=== PATIENT | female | born 1940 | race Caucasian/White ===

== ENCOUNTER 2018-08-20 14:36 | Observation (INO) ==
[2018-08-20 16:26] LABS: Basophils # 0.1 10*3/uL (0.0-0.2); Basophils % 0.8 % (0.0-0.8); Eosinophils # 0.1 10*3/uL (0.0-0.87); Eosinophils % 1.7 % (0.00-10.9); Hematocrit 31.7 VOL% (35.7-47.0); Hemoglobin 9.7 GM/DL (12.0-16.0); Immature Granulocytes % 0.4 %; Immature Granulocytes Absolute 0.03 #; Lymphocytes # 1.3 10*3/uL (1.4-4.0); Lymphocytes % 17.8 % (21.3-54.2); Mean Corpuscular HGB Conc 30.6 GM/DL (32-36); Mean Corpuscular Hemoglobin 32 PG (27-34); Mean Corpuscular Volume 103.3 FL (87-102); Mean Platelet Volume 10.7 FL (9.6-12.0); Monocytes # 0.4 10*3/uL (0.11-0.8); Neutrophils # 5.3 10*3/uL (1.4-7.4); Neutrophils % 74.3 % (38.7-73.9); Platelet Count 233 T/CUMM (130-400); Red Blood Count 3.07 MC/CUMM (3.8-5.5); White Blood Count 7.1 T/CUMM (4-12)
[2018-08-20 16:50] LABS: Albumin 3.8 G/DL (3.4-5.0); Bilirubin,Total 1.2 MG/DL (0.2-1.0); Calcium 8.7 MG/DL (8.5-10.1); Osmolality,Calculated 272.8 MOS/KG (273-304); Potassium 4.2 MMOL/L (3.5-5.1); Total Protein 7.6 G/DL (6.4-8.3)
[2018-08-20 17:01] LABS: INR 1.6; Partial Thromboplastin Time 37.1 SECS (0-40)
[2018-08-20] MEDS ORDERED: SODIUM CHLORIDE 0.9% 500 ML IV STA (17:31)
[2018-08-20 18:05] LABS: Apearance,Urine CLEAR (Clear); Bacteria,Urine Occasional /HPF (Few); Bilirubin,Urine Negative (Negative); Blood, Urine Moderate mg/dL (Negative); Glucose,Urine (UA) Negative (Negative); Ketones,Urine Negative (Negative); Nitrite,Urine Negative (Negative); Protein,Urine Negative; RBC,Urine 5 /HPF (0-4); Urine Color Straw (Yellow); Urine Specific Gravity 1.005 (1.001-1.035); Urine Urobilinogen < 2.0 EU/DL (0.2-1.0); WBC,Urine 3 /HPF (0-6)
[2018-08-20] MEDS ORDERED: WARFARIN 3 MG TABLET PO SCH (19:08)
[2018-08-20] MEDS ORDERED: MORPHINE 4 MG/1 ML VIAL IV PRN (19:08)
[2018-08-20] MEDS ORDERED: ONDANSETRON 4 MG/2 ML VIAL IV PRN (19:08)
[2018-08-20] MEDS: METOPROLOL TARTRATE 50 MG TABLET PO SCH (20:48)
[2018-08-20] MEDS: AMITRIPTYLINE 25 MG TABLET PO SCH (20:48)
[2018-08-20] MEDS: DOCUSATE SODIUM 100 MG CAPSULE PO SCH (20:48)
[2018-08-20] MEDS: ALPRAZolam 0.5 MG TABLET PO SCH (20:50)
[2018-08-21] MEDS: ASPIRIN EC 81 MG TABLET PO SCH (09:43)
[2018-08-21] MEDS: DOCUSATE SODIUM 100 MG CAPSULE PO SCH ×2 (09:43→21:13)
[2018-08-21] MEDS: METOPROLOL TARTRATE 50 MG TABLET PO SCH ×2 (09:43→21:13)
[2018-08-21] MEDS: PANTOPRAZOLE 40 MG TABLET PO SCH (09:43)
[2018-08-21 14:29] LABS: INR 2.5
[2018-08-21 14:30] LABS: PT Patient Result 25.3 SECS
[2018-08-21] MEDS: FERROUS SULFATE 325 MG TABLET PO SCH (16:29)
[2018-08-21] MEDS ORDERED: WARFARIN 3 MG TABLET PO SCH (18:00)
[2018-08-21] MEDS: ALPRAZolam 0.5 MG TABLET PO SCH (21:11)
[2018-08-21] MEDS: AMITRIPTYLINE 25 MG TABLET PO SCH (21:12)
[2018-08-21] MEDS: ACETAMINOPHEN 325 MG TABLET PO PRN (21:13)
[2018-08-21] MEDS ORDERED: rOPINIRole 1 MG TABLET PO SCH (23:45)
[2018-08-22 05:50] LABS: Basophils # 0.1 10*3/uL (0.0-0.2); Basophils % 0.9 % (0.0-0.8); Eosinophils # 0.2 10*3/uL (0.0-0.87); Eosinophils % 3.6 % (0.00-10.9); Hematocrit 27.9 VOL% (35.7-47.0); Hemoglobin 8.7 GM/DL (12.0-16.0); Immature Granulocytes % 0.5 %; Immature Granulocytes Absolute 0.03 #; Lymphocytes # 0.9 10*3/uL (1.4-4.0); Lymphocytes % 15.7 % (21.3-54.2); Mean Corpuscular HGB Conc 31.2 GM/DL (32-36); Mean Corpuscular Hemoglobin 32 PG (27-34); Mean Corpuscular Volume 102.6 FL (87-102); Mean Platelet Volume 10.4 FL (9.6-12.0); Monocytes # 0.4 10*3/uL (0.11-0.8); Monocytes % 7.5 % (1.7-12.7); Neutrophils % 71.8 % (38.7-73.9); Platelet Count 182 T/CUMM (130-400); Red Blood Count 2.72 MC/CUMM (3.8-5.5); Red Cell Distribution Width 12.8 % (9.3-17.3); White Blood Count 5.6 T/CUMM (4-12)
[2018-08-22 06:03] LABS: Calcium 8.4 MG/DL (8.5-10.1); INR 4.2; Osmolality,Calculated 282.8 MOS/KG (273-304); Potassium 4.1 MMOL/L (3.5-5.1)
[2018-08-22 06:05] LABS: PT Patient Result 41.6 SECS
[2018-08-22 08:05] VITALS: BP 109/57
[2018-08-22] MEDS: ACETAMINOPHEN 325 MG TABLET PO PRN (08:39)
[2018-08-22] MEDS: PANTOPRAZOLE 40 MG TABLET PO SCH (08:39)
[2018-08-22] MEDS: DOCUSATE SODIUM 100 MG CAPSULE PO SCH (08:39)
[2018-08-22] MEDS: FERROUS SULFATE 325 MG TABLET PO SCH (08:39)
[2018-08-22] MEDS: METOPROLOL TARTRATE 50 MG TABLET PO SCH (08:39)
[2018-08-22] MEDS: ASPIRIN EC 81 MG TABLET PO SCH (08:39)
[2018-08-22] MEDS ORDERED: MAGNESIUM GLUCONATE 500 MG TABLET PO SCH (09:00)
[2018-08-22] MEDS ORDERED: FUROSEMIDE 20 MG TABLET PO SCH (09:00)
== END 2018-08-22 13:13 | disposition home or self-care (01) ==
LOC: N.ED 14:36 → N.EDINP 14:36 → N.TELEN 19:01
PROVIDERS: ADMIT Family Medicine; ATTEND Family Medicine

== ENCOUNTER 2019-04-20 12:44 | Inpatient (IN) ==
[2019-04-20] MEDS ORDERED: HYDROmorphone 2 MG/1 ML VIAL IV STA (13:16)
[2019-04-20] MEDS ORDERED: ONDANSETRON 4 MG/2 ML VIAL ONE (13:17)
[2019-04-20] MEDS ORDERED: HYDROmorphone 2 MG/1 ML VIAL ONE (13:17)
[2019-04-20] MEDS ORDERED: ONDANSETRON 4 MG/2 ML VIAL IV STA (13:18)
[2019-04-20 13:58] LABS: Basophils # 0.1 10*3/uL (0.0-0.2); Basophils % 0.7 % (0.0-0.8); Eosinophils # 0.3 10*3/uL (0.0-0.87); Eosinophils % 3.5 % (0.00-10.9); Hematocrit 29.9 VOL% (35.7-47.0); Hemoglobin 8.9 GM/DL (12.0-16.0); Immature Granulocytes % 0.7 %; Immature Granulocytes Absolute 0.05 #; Lymphocytes # 0.9 10*3/uL (1.4-4.0); Lymphocytes % 12.8 % (21.3-54.2); Mean Corpuscular HGB Conc 29.8 GM/DL (32-36); Mean Corpuscular Volume 102.7 FL (87-102); Mean Platelet Volume 9.7 FL (9.6-12.0); Monocytes % 5.3 % (1.7-12.7); Platelet Count 218 T/CUMM (130-400); Red Blood Count 2.91 MC/CUMM (3.8-5.5); Red Cell Distribution Width 13.6 % (9.3-17.3); White Blood Count 7.4 T/CUMM (4-12)
[2019-04-20] MEDS ORDERED: KETOROLAC 30 MG/1 ML VIAL ONE (14:05)
[2019-04-20 14:07] LABS: INR 3.1; Partial Thromboplastin Time 38.5 SECS (0-40)
[2019-04-20] MEDS ORDERED: KETOROLAC 30 MG/1 ML VIAL IV STA (14:09)
[2019-04-20 14:17] LABS: Calcium 8.5 MG/DL (8.5-10.1)
[2019-04-20] MEDS ORDERED: GLUCAGON 1 MG VIAL IM PRN (14:34)
[2019-04-20] MEDS ORDERED: DEXTROSE 50% 25 GM/50 ML VIAL IV PRN (14:34)
[2019-04-20] MEDS ORDERED: MAGNESIUM HYDROXIDE SUSP 30 ML UDCUP PO PRN (14:34)
[2019-04-20] MEDS ORDERED: CARBOXYMETHYLCELLULOSE 1% OPH SOLN BOTH EYES PRN (14:39)
[2019-04-20] MEDS ORDERED: FUROSEMIDE 20 MG TABLET PO PRN (14:39)
[2019-04-20 15:10] LABS: Alanine Aminotransferase 34 U/L (13-56); Albumin 3.5 G/DL (3.4-5.0); Alkaline Phosphatase 129 U/L (45-117); Aspartate Amino Transferase 38 U/L (0-37); Bilirubin,Total < 0.39 MG/DL (0.2-1.0); Blood Urea Nitrogen 30 MG/DL (7-18); Calcium 8.4 MG/DL (8.5-10.1); Glucose 93 MG/DL (74-106); Total Protein 6.9 G/DL (6.4-8.3)
[2019-04-20] MEDS: SODIUM CHLORIDE 0.9% 1,000 ML IV SCH (17:05)
[2019-04-20] MEDS: rOPINIRole 1 MG TABLET PO SCH ×2 (17:10→20:56)
[2019-04-20] MEDS: INSULIN LISPRO 100 UNIT/ML SUBCUT SCH ×2 (17:12→20:56)
[2019-04-20] MEDS: HYDROmorphone 2 MG/1 ML VIAL IV PRN ×2 (19:46→23:39)
[2019-04-20] MEDS: METOPROLOL TARTRATE 50 MG TABLET PO SCH (20:56)
[2019-04-21] MEDS: SODIUM CHLORIDE 0.9% 1,000 ML IV SCH ×3 (03:44→20:35)
[2019-04-21] MEDS: HYDROmorphone 2 MG/1 ML VIAL IV PRN ×4 (03:45→19:37)
[2019-04-21 05:34] LABS: Calcium 7.8 MG/DL (8.5-10.1)
[2019-04-21 05:37] LABS: PT Patient Result 32.8 SECS
[2019-04-21] MEDS ORDERED: SODIUM CHLORIDE 0.9% 1,000 ML IV PRN (07:01)
[2019-04-21] MEDS: INSULIN LISPRO 100 UNIT/ML SUBCUT SCH ×4 (07:37→21:51)
[2019-04-21] MEDS: rOPINIRole 1 MG TABLET PO SCH ×3 (10:08→22:15)
[2019-04-21] MEDS: FERROUS SULFATE 325 MG TABLET PO SCH (10:08)
[2019-04-21] MEDS: METOPROLOL TARTRATE 50 MG TABLET PO SCH ×2 (10:08→22:16)
[2019-04-21 12:15] LABS: INR 2.3
[2019-04-21 12:19] LABS: PT Patient Result 25.1 SECS
[2019-04-21 14:14] LABS: INR 1.6; PT Patient Result 17.5 SECS
[2019-04-21] MEDS ORDERED: ceFAZolin 1,000 MG VIAL ONE (15:49)
[2019-04-21] MEDS ORDERED: ONDANSETRON 4 MG/2 ML VIAL ONE (17:39)
[2019-04-21] MEDS ORDERED: ETOMIDATE 40 MG/20 ML VIAL IV ONE (17:39)
[2019-04-21] MEDS ORDERED: DESFLURANE 1 UNIT/15 MINUTE INH ONE (17:39)
[2019-04-21] MEDS ORDERED: fentaNYL 100 MCG/2 ML VIAL ONE (17:39)
[2019-04-21] MEDS ORDERED: SODIUM CHLORIDE 0.9% 1,000 ML IV ONE (17:40)
[2019-04-21] MEDS ORDERED: ROCURONIUM 100 MG/10 ML VIAL IV ONE (17:40)
[2019-04-21] MEDS ORDERED: SUCCINYLCHOLINE 200 MG/10 ML VIAL ONE (17:40)
[2019-04-21] MEDS ORDERED: PHENYLEPHRINE 1 MG/10 ML SYRINGE IV ONE (17:40)
[2019-04-21] MEDS: ceFAZolin 1,000 MG in SYRINGE 1 EACH IV SCH ×2 (19:02→22:25)
[2019-04-22 05:22] LABS: Calcium 7.7 MG/DL (8.5-10.1); Osmolality,Calculated 296.6 MOS/KG (273-304)
[2019-04-22 05:28] LABS: INR 1.8; PT Patient Result 19.8 SECS
[2019-04-22 06:13] LABS: Basophils # 0.1 10*3/uL (0.0-0.2); Basophils % 0.4 % (0.0-0.8); Eosinophils # 0.3 10*3/uL (0.0-0.87); Eosinophils % 2.3 % (0.00-10.9); Hematocrit 25.2 VOL% (35.7-47.0); Immature Granulocytes % 0.8 %; Immature Granulocytes Absolute 0.11 #; Lymphocytes # 0.6 10*3/uL (1.4-4.0); Lymphocytes % 4.4 % (21.3-54.2); Mean Corpuscular HGB Conc 31.7 GM/DL (32-36); Mean Corpuscular Volume 96.9 FL (87-102); Mean Platelet Volume 10.7 FL (9.6-12.0); Monocytes % 4.1 % (1.7-12.7); NRBC # 0.02 10*3/uL; Platelet Count 102 T/CUMM (130-400); Red Cell Distribution Width 16.5 % (9.3-17.3); White Blood Count 13.6 T/CUMM (4-12)
[2019-04-22 06:36] LABS: Eosinophils 1 % (0-10); Lymphocytes 4 % (20-55); Segmented Neutrophils 93 % (50-85); Total Cells Counted 100
[2019-04-22 06:37] LABS: Hypochromasia 1+; Platelet Estimate Adequate
[2019-04-22] MEDS: SODIUM CHLORIDE 0.9% 1,000 ML IV SCH ×2 (06:47→17:25)
[2019-04-22] MEDS: ceFAZolin 1,000 MG in SYRINGE 1 EACH IV SCH ×3 (06:47→23:37)
[2019-04-22] MEDS ORDERED: SODIUM CHLORIDE 0.9% 1,000 ML IV PRN (07:15)
[2019-04-22] MEDS: INSULIN LISPRO 100 UNIT/ML SUBCUT SCH ×4 (07:57→22:03)
[2019-04-22] MEDS ORDERED: MAGNESIUM SULF RIDER 4 GM in PREMIX 1 EACH IV PRN (08:05)
[2019-04-22] MEDS: METOPROLOL TARTRATE 50 MG TABLET PO SCH (08:58)
[2019-04-22] MEDS: rOPINIRole 1 MG TABLET PO SCH ×3 (08:58→22:02)
[2019-04-22] MEDS: FERROUS SULFATE 325 MG TABLET PO SCH (08:58)
[2019-04-22] MEDS: ENOXAPARIN 40 MG/0.4 ML SYRINGE SUBCUT SCH ×2 (12:24→22:03)
[2019-04-22] MEDS: ACETAMINOPHEN 325 MG TABLET PO PRN (15:29)
[2019-04-22] MEDS: MAGNESIUM SULF RIDER 2 GM in PREMIX 1 EACH IV PRN (16:55)
[2019-04-22] MEDS: WARFARIN 7.5 MG TABLET PO SCH (17:26)
[2019-04-22 18:29] LABS: Hematocrit 28.9 VOL% (35.7-47.0); Hemoglobin 9.5 GM/DL (12.0-16.0)
[2019-04-22] MEDS: METOPROLOL TARTRATE 25 MG TABLET PO SCH (22:03)
[2019-04-23] MEDS ORDERED: ALPRAZolam 0.5 MG TABLET PO ONE (00:16)
[2019-04-23] MEDS: SODIUM CHLORIDE 0.9% 1,000 ML IV SCH ×3 (01:36→13:48)
[2019-04-23 05:35] LABS: Calcium 8.1 MG/DL (8.5-10.1)
[2019-04-23 06:19] LABS: PT Patient Result 21.2 SECS
[2019-04-23 06:41] LABS: Basophils % 0.4 % (0.0-0.8); Eosinophils # 0.8 10*3/uL (0.0-0.87); Hematocrit 25.6 VOL% (35.7-47.0); Hemoglobin 8.5 GM/DL (12.0-16.0); Immature Granulocytes % 0.5 %; Immature Granulocytes Absolute 0.05 #; Lymphocytes # 0.7 10*3/uL (1.4-4.0); Lymphocytes % 7.4 % (21.3-54.2); Mean Corpuscular HGB Conc 33.2 GM/DL (32-36); Mean Corpuscular Volume 95.2 FL (87-102); Monocytes % 4.4 % (1.7-12.7); Neutrophils % 79.3 % (38.7-73.9); Red Blood Count 2.69 MC/CUMM (3.8-5.5); Red Cell Distribution Width 16.4 % (9.3-17.3); White Blood Count 9.9 T/CUMM (4-12)
[2019-04-23 06:48] LABS: Platelet Count 80 T/CUMM (130-400)
[2019-04-23 07:03] LABS: Anisocytosis Slight; Platelet Estimate Decreased
[2019-04-23] MEDS: ceFAZolin 1,000 MG in SYRINGE 1 EACH IV SCH ×3 (07:16→23:10)
[2019-04-23] MEDS: INSULIN LISPRO 100 UNIT/ML SUBCUT SCH ×4 (07:26→21:05)
[2019-04-23] MEDS ORDERED: SODIUM CHLORIDE 0.9% 1,000 ML IV PRN (07:32)
[2019-04-23] MEDS: FERROUS SULFATE 325 MG TABLET PO SCH (10:09)
[2019-04-23] MEDS: METOPROLOL TARTRATE 25 MG TABLET PO SCH ×2 (10:10→20:25)
[2019-04-23] MEDS: rOPINIRole 1 MG TABLET PO SCH ×3 (10:10→20:25)
[2019-04-23] MEDS: WARFARIN 7.5 MG TABLET PO SCH (18:00)
[2019-04-24 05:58] LABS: INR 2.3
[2019-04-24 06:08] LABS: PT Patient Result 24.9 SECS
[2019-04-24] MEDS: ceFAZolin 1,000 MG in SYRINGE 1 EACH IV SCH ×3 (07:05→22:02)
[2019-04-24] MEDS: SODIUM CHLORIDE 0.9% 1,000 ML IV SCH ×2 (07:10→12:10)
[2019-04-24] MEDS: INSULIN LISPRO 100 UNIT/ML SUBCUT SCH ×4 (07:53→21:02)
[2019-04-24] MEDS: FERROUS SULFATE 325 MG TABLET PO SCH (09:28)
[2019-04-24] MEDS: METOPROLOL TARTRATE 25 MG TABLET PO SCH ×2 (09:28→21:04)
[2019-04-24] MEDS: rOPINIRole 1 MG TABLET PO SCH ×3 (09:28→21:03)
[2019-04-24] MEDS: WARFARIN 7.5 MG TABLET PO SCH (17:48)
[2019-04-25] MEDS: SODIUM CHLORIDE 0.9% 1,000 ML IV SCH (06:19)
[2019-04-25] MEDS: ceFAZolin 1,000 MG in SYRINGE 1 EACH IV SCH ×3 (06:19→23:29)
[2019-04-25 06:56] LABS: Basophils % 0.5 % (0.0-0.8); Eosinophils # 0.7 10*3/uL (0.0-0.87); Eosinophils % 9.6 % (0.00-10.9); Hematocrit 33.3 VOL% (35.7-47.0); Hemoglobin 10.8 GM/DL (12.0-16.0); Immature Granulocytes % 0.4 %; Immature Granulocytes Absolute 0.03 #; Lymphocytes # 0.7 10*3/uL (1.4-4.0); Mean Corpuscular HGB Conc 32.4 GM/DL (32-36); Mean Platelet Volume 11.1 FL (9.6-12.0); Neutrophils % 72.5 % (38.7-73.9); Platelet Count 90 T/CUMM (130-400); Red Blood Count 3.47 MC/CUMM (3.8-5.5); Red Cell Distribution Width 16.4 % (9.3-17.3); White Blood Count 7.3 T/CUMM (4-12)
[2019-04-25 07:03] LABS: INR 3.3
[2019-04-25 07:04] LABS: PT Patient Result 35.8 SECS
[2019-04-25 07:19] LABS: Osmolality,Calculated 283.3 MOS/KG (273-304)
[2019-04-25] MEDS: INSULIN LISPRO 100 UNIT/ML SUBCUT SCH ×4 (07:47→21:13)
[2019-04-25 08:08] LABS: Anisocytosis 1+; Burr Cells Slight; Macrocytosis Slight; Microcytosis Slight; Ovalocytes Slight; Platelet Estimate Adequate; Polychromasia Slight
[2019-04-25] MEDS: rOPINIRole 1 MG TABLET PO SCH ×3 (08:24→21:13)
[2019-04-25] MEDS: METOPROLOL TARTRATE 25 MG TABLET PO SCH ×2 (08:24→21:13)
[2019-04-25] MEDS: FERROUS SULFATE 325 MG TABLET PO SCH (08:25)
[2019-04-25] MEDS: HYDROmorphone 2 MG/1 ML VIAL IV PRN ×2 (12:17→19:49)
[2019-04-25] MEDS: WARFARIN 7.5 MG TABLET PO SCH (18:02)
[2019-04-26] MEDS: SODIUM CHLORIDE 0.9% 1,000 ML IV SCH ×2 (02:03→21:40)
[2019-04-26] MEDS: HYDROmorphone 2 MG/1 ML VIAL IV PRN (03:56)
[2019-04-26] MEDS: ceFAZolin 1,000 MG in SYRINGE 1 EACH IV SCH ×3 (06:18→23:40)
[2019-04-26 06:28] LABS: INR 4.3
[2019-04-26] MEDS: INSULIN LISPRO 100 UNIT/ML SUBCUT SCH ×4 (08:30→21:33)
[2019-04-26] MEDS: rOPINIRole 1 MG TABLET PO SCH ×4 (10:00→21:34)
[2019-04-26] MEDS: ALPRAZolam 0.25 MG TABLET PO PRN (10:07)
[2019-04-26] MEDS: FERROUS SULFATE 325 MG TABLET PO SCH (10:07)
[2019-04-26] MEDS: METOPROLOL TARTRATE 25 MG TABLET PO SCH ×2 (10:07→21:34)
[2019-04-26] MEDS: WARFARIN 7.5 MG TABLET PO SCH (17:15)
[2019-04-26] MEDS: DESITIN 4OZ/NYSTATIN 15 GRAM MIXTURE PASTE TOP SCH (21:40)
[2019-04-27] MEDS: ACETAMINOPHEN 325 MG TABLET PO PRN ×3 (00:07→14:38)
[2019-04-27] MEDS: ALPRAZolam 0.25 MG TABLET PO PRN ×2 (00:07→22:25)
[2019-04-27 05:44] LABS: Basophils % 0.6 % (0.0-0.8); Eosinophils # 0.5 10*3/uL (0.0-0.87); Eosinophils % 7.6 % (0.00-10.9); Hematocrit 31.5 VOL% (35.7-47.0); Immature Granulocytes % 0.4 %; Immature Granulocytes Absolute 0.03 #; Lymphocytes # 0.6 10*3/uL (1.4-4.0); Lymphocytes % 8.1 % (21.3-54.2); Mean Corpuscular HGB Conc 31.7 GM/DL (32-36); Mean Corpuscular Volume 98.4 FL (87-102); Mean Platelet Volume 10.6 FL (9.6-12.0); Monocytes % 8.5 % (1.7-12.7); Neutrophils % 74.8 % (38.7-73.9); Platelet Count 130 T/CUMM (130-400); Red Cell Distribution Width 15.6 % (9.3-17.3); White Blood Count 7.1 T/CUMM (4-12)
[2019-04-27 05:51] LABS: INR 3.1; PT Patient Result 33.6 SECS
[2019-04-27] MEDS: ceFAZolin 1,000 MG in SYRINGE 1 EACH IV SCH ×3 (06:25→23:06)
[2019-04-27 06:32] LABS: Alanine Aminotransferase < 9 U/L (13-56); Albumin 2.2 G/DL (3.4-5.0); Alkaline Phosphatase 95 U/L (45-117); Aspartate Amino Transferase 26 U/L (0-37); Blood Urea Nitrogen 15 MG/DL (7-18); Calcium 7.9 MG/DL (8.5-10.1); Glucose 104 MG/DL (74-106); Total Protein 5.1 G/DL (6.4-8.3)
[2019-04-27] MEDS: INSULIN LISPRO 100 UNIT/ML SUBCUT SCH ×4 (07:58→21:06)
[2019-04-27] MEDS: FERROUS SULFATE 325 MG TABLET PO SCH (09:12)
[2019-04-27] MEDS: METOPROLOL TARTRATE 25 MG TABLET PO SCH ×2 (09:13→21:06)
[2019-04-27] MEDS: rOPINIRole 1 MG TABLET PO SCH ×3 (09:13→21:06)
[2019-04-27] MEDS: MAGNESIUM SULF RIDER 2 GM in PREMIX 1 EACH IV PRN (09:15)
[2019-04-27] MEDS: DESITIN 4OZ/NYSTATIN 15 GRAM MIXTURE PASTE TOP SCH ×2 (09:20→21:06)
[2019-04-27] MEDS ORDERED: ERGOCALCIFEROL 50,000 UNIT CAPSULE PO ONE (10:16)
[2019-04-27] MEDS ORDERED: traMADol 50 MG TABLET PO PRN (10:38)
[2019-04-27] MEDS ORDERED: WARFARIN 5 MG TABLET PO SCH ×2 (18:00)
[2019-04-27] MEDS: SODIUM CHLORIDE 0.9% 1,000 ML IV SCH (19:45)
[2019-04-27] MEDS ORDERED: NITROGLYCERIN SL 0.4 MG TABLET SL ONE (22:21)
[2019-04-27] MEDS ORDERED: SIMETHICONE CHEW 80 MG TABLET PO PRN (22:33)
[2019-04-27] MEDS ORDERED: ALUM/MAG/SIMETH/LIDO VISC 1:1 30 ML BOTTLE PO ONE (22:33)
[2019-04-27] MEDS ORDERED: ALUMINUM/MAGNES/SIMETH MAX STR 30 ML UDCUP PO PRN (22:35)
[2019-04-27] MEDS ORDERED: NITROGLYCERIN SL 0.4 MG TABLET SL PRN (22:36)
[2019-04-28 05:00] LABS: Basophils % 0.5 % (0.0-0.8); Eosinophils # 0.5 10*3/uL (0.0-0.87); Eosinophils % 6.7 % (0.00-10.9); Hematocrit 29.7 VOL% (35.7-47.0); Hemoglobin 9.6 GM/DL (12.0-16.0); Immature Granulocytes % 0.8 %; Immature Granulocytes Absolute 0.06 #; Lymphocytes # 0.7 10*3/uL (1.4-4.0); Lymphocytes % 9.6 % (21.3-54.2); Mean Corpuscular HGB Conc 32.3 GM/DL (32-36); Mean Corpuscular Volume 97.7 FL (87-102); Mean Platelet Volume 10.9 FL (9.6-12.0); Monocytes % 7.1 % (1.7-12.7); Neutrophils % 75.3 % (38.7-73.9); Platelet Count 164 T/CUMM (130-400); Red Blood Count 3.04 MC/CUMM (3.8-5.5); Red Cell Distribution Width 15.4 % (9.3-17.3); White Blood Count 7.6 T/CUMM (4-12)
[2019-04-28 05:04] LABS: INR 1.7; PT Patient Result 18.9 SECS
[2019-04-28 05:21] LABS: Alanine Aminotransferase < 6 U/L (13-56); Albumin 2.4 G/DL (3.4-5.0); Alkaline Phosphatase 98 U/L (45-117); Aspartate Amino Transferase 25 U/L (0-37); Blood Urea Nitrogen 15 MG/DL (7-18); Calcium 8.5 MG/DL (8.5-10.1); Glucose 85 MG/DL (74-106); Osmolality,Calculated 282.1 MOS/KG (273-304); Total Protein 5.2 G/DL (6.4-8.3)
[2019-04-28] MEDS: ceFAZolin 1,000 MG in SYRINGE 1 EACH IV SCH (06:47)
[2019-04-28] MEDS: INSULIN LISPRO 100 UNIT/ML SUBCUT SCH ×2 (07:30→12:11)
[2019-04-28] MEDS ORDERED: SERTRALINE 50 MG TABLET PO SCH (09:00)
[2019-04-28] MEDS: rOPINIRole 1 MG TABLET PO SCH (09:15)
[2019-04-28] MEDS: FERROUS SULFATE 325 MG TABLET PO SCH (09:15)
[2019-04-28] MEDS: METOPROLOL TARTRATE 25 MG TABLET PO SCH (09:15)
[2019-04-28] MEDS: DESITIN 4OZ/NYSTATIN 15 GRAM MIXTURE PASTE TOP SCH (09:30)
[2019-04-28 11:53] VITALS: BP 134/61
[2019-04-28] MEDS ORDERED: WARFARIN 5 MG TABLET PO SCH (18:00)
[2019-05-04] MEDS ORDERED: ERGOCALCIFEROL 50,000 UNIT CAPSULE PO SCH (09:00)
== END 2019-04-28 14:40 | disposition swing bed (61) | DRG 481 ==
LOC: EDBD → EDUNIT# → N.ED 12:44 → N.EDINP 14:34 → N.3E 15:18
PROVIDERS: ADMIT Family Medicine; ATTEND Family Medicine

== ENCOUNTER 2019-06-20 18:22 | Inpatient (IN) ==
[2019-06-20 19:00] LABS: Basophils % 0.3 % (0.0-0.8); Eosinophils # 0.3 10*3/uL (0.0-0.87); Eosinophils % 2.1 % (0.00-10.9); Hematocrit 35.4 VOL% (35.7-47.0); Hemoglobin 11.3 GM/DL (12.0-16.0); Immature Granulocytes % 0.3 %; Immature Granulocytes Absolute 0.04 #; Lymphocytes # 1.4 10*3/uL (1.4-4.0); Lymphocytes % 12.2 % (21.3-54.2); Mean Corpuscular HGB Conc 31.9 GM/DL (32-36); Mean Corpuscular Volume 98.6 FL (87-102); Mean Platelet Volume 10.1 FL (9.6-12.0); Monocytes % 4.5 % (1.7-12.7); Neutrophils % 80.6 % (38.7-73.9); Platelet Count 235 T/CUMM (130-400); Red Blood Count 3.59 MC/CUMM (3.8-5.5); Red Cell Distribution Width 14.1 % (9.3-17.3); White Blood Count 11.7 T/CUMM (4-12)
[2019-06-20 19:17] LABS: INR 1.1; PT Patient Result 12.1 SECS (9.6-12.2); Partial Thromboplastin Time 29.1 SECS (20.8-36.0)
[2019-06-20 19:29] LABS: Alanine Aminotransferase 27 U/L (13-56); Albumin 3.6 G/DL (3.4-5.0); Alkaline Phosphatase 228 U/L (45-117); Aspartate Amino Transferase 31 U/L (0-37); Bilirubin,Total < 0.39 MG/DL (0.2-1.0); Blood Urea Nitrogen 35 MG/DL (7-18); Calcium 8.4 MG/DL (8.5-10.1); Glucose 110 MG/DL (74-106); Osmolality,Calculated 289.3 MOS/KG (273-304); Total Protein 7.7 G/DL (6.4-8.3)
[2019-06-20] MEDS ORDERED: ONDANSETRON 4 MG/2 ML VIAL IV PRN (20:28)
[2019-06-20] MEDS: ENOXAPARIN 40 MG/0.4 ML SYRINGE SUBCUT SCH (23:02)
[2019-06-20] MEDS: DOCUSATE SODIUM 100 MG CAPSULE PO SCH (23:02)
[2019-06-21] MEDS: ACETAMINOPHEN 325 MG TABLET PO PRN ×2 (05:04→18:30)
[2019-06-21] MEDS ORDERED: CARBOXYMETHYLCELLULOSE 1% OPH SOLN BOTH EYES PRN (07:31)
[2019-06-21] MEDS ORDERED: ACETAMINOPHEN 325 MG TABLET PO PRN (07:31)
[2019-06-21] MEDS ORDERED: SIMETHICONE CHEW 80 MG TABLET PO PRN (07:31)
[2019-06-21] MEDS ORDERED: FUROSEMIDE 20 MG TABLET PO PRN (07:31)
[2019-06-21] MEDS ORDERED: PROMETHAZINE 25 MG TABLET PO PRN (07:31)
[2019-06-21] MEDS ORDERED: tiZANidine 4 MG TABLET PO PRN (07:31)
[2019-06-21] MEDS ORDERED: LOPERAMIDE 2 MG CAPSULE PO PRN (07:31)
[2019-06-21] MEDS ORDERED: NITROGLYCERIN SL 0.4 MG TABLET SL PRN (07:31)
[2019-06-21] MEDS ORDERED: WARFARIN 5 MG TABLET PO ONE (07:33)
[2019-06-21] MEDS: FERROUS SULFATE 325 MG TABLET PO SCH (08:54)
[2019-06-21] MEDS: DOCUSATE SODIUM 100 MG CAPSULE PO SCH ×2 (08:54→20:38)
[2019-06-21] MEDS: MAGNESIUM OXIDE 400 MG TABLET PO SCH (08:54)
[2019-06-21] MEDS: rOPINIRole 1 MG TABLET PO SCH ×3 (08:54→20:33)
[2019-06-21] MEDS: ASPIRIN EC 81 MG TABLET PO SCH (08:55)
[2019-06-21] MEDS: SERTRALINE 50 MG TABLET PO SCH (08:55)
[2019-06-21] MEDS: METOPROLOL TARTRATE 50 MG TABLET PO SCH ×2 (08:55→20:32)
[2019-06-21] MEDS: PANTOPRAZOLE 40 MG TABLET PO SCH ×3 (08:55→20:32)
[2019-06-21] MEDS ORDERED: ERGOCALCIFEROL 50,000 UNIT CAPSULE PO SCH (09:00)
[2019-06-21] MEDS: DESITIN 4OZ/NYSTATIN 15 GRAM MIXTURE PASTE TOP SCH ×2 (09:01→20:38)
[2019-06-21] MEDS: ENOXAPARIN 40 MG/0.4 ML SYRINGE SUBCUT SCH ×2 (09:01→20:33)
[2019-06-21] MEDS: ALPRAZolam 0.25 MG TABLET PO PRN (20:33)
[2019-06-21] MEDS: OLANZapine 2.5 MG TABLET PO SCH (20:33)
[2019-06-22] LABS: Basophils % 0.2 % (0.0-0.8); Hematocrit 39.5 VOL% (35.7-47.0); Hemoglobin 12.6 GM/DL (12.0-16.0); Immature Granulocytes % 0.6 %; Immature Granulocytes Absolute 0.07 #; Lymphocytes # 0.8 10*3/uL (1.4-4.0); Lymphocytes % 6.8 % (21.3-54.2); Mean Corpuscular HGB Conc 31.9 GM/DL (32-36); Mean Corpuscular Volume 98.3 FL (87-102); Mean Platelet Volume 10.3 FL (9.6-12.0); Monocytes % 0.2 % (1.7-12.7); Neutrophils % 92.2 % (38.7-73.9); Platelet Count 193 T/CUMM (130-400); Red Blood Count 4.02 MC/CUMM (3.8-5.5); Red Cell Distribution Width 14.1 % (9.3-17.3); White Blood Count 12.1 T/CUMM (4-12)
[2019-06-22] MEDS ORDERED: AMIODARONE INJ 150 MG in DEXTROSE 5% 100 ML IV ONE (00:04)
[2019-06-22] MEDS ORDERED: AMIODARONE 150 MG/3 ML VIAL ONE ×2 (00:08→00:11)
[2019-06-22] MEDS ORDERED: MIDAZOLAM 10 MG/2 ML VIAL ONE (00:09)
[2019-06-22 00:14] LABS: INR 1.7; Partial Thromboplastin Time 35.9 SECS (20.8-36.0)
[2019-06-22 00:20] LABS: Band Neutrophils 9 % (0-10); Lymphocytes 6 % (20-55); Segmented Neutrophils 85 % (50-85)
[2019-06-22 00:22] LABS: Platelet Estimate Normal; Total Cells Counted 100
[2019-06-22 00:23] LABS: Albumin 3.4 G/DL (3.4-5.0); Bilirubin,Total 0.7 MG/DL (0.2-1.0); Calcium 9.1 MG/DL (8.5-10.1); Osmolality,Calculated 290.5 MOS/KG (273-304)
[2019-06-22] MEDS ORDERED: SODIUM CHLORIDE 0.9% 500 ML IV STA (00:26)
[2019-06-22] MEDS ORDERED: MIDAZOLAM 2 MG/2 ML VIAL IV ONE (00:28)
[2019-06-22] MEDS ORDERED: AMIODARONE INJ 450 MG in DEXTROSE 5% 241 ML IV SCH (00:30)
[2019-06-22 00:59] LABS: Troponin I 0.118 NG/ML (0.00-0.045)
[2019-06-22] MEDS: SODIUM CHLORIDE 0.9% 1,000 ML IV SCH (01:00)
[2019-06-22] MEDS: PHENYLEPHRINE DRIP 40 MG/250 ML PREMIX IV PRN ×8 (01:13→21:10)
[2019-06-22 02:51] LABS: Apearance,Urine CLOUDY (Clear); Bacteria,Urine Moderate /HPF (Few); Bilirubin,Urine Negative (Negative); Blood, Urine Large mg/dL (Negative); Glucose,Urine (UA) Negative (Negative); Ketones,Urine Negative (Negative); Nitrite,Urine Negative (Negative); Protein,Urine 100 MG/DL; RBC,Urine 64 /HPF (0-4); Urine Color Yellow (Yellow); Urine Specific Gravity 1.013 (1.001-1.035); Urine Urobilinogen < 2.0 EU/DL (0.2-1.0); WBC,Urine 612 /HPF (0-6)
[2019-06-22] MEDS: ACETAMINOPHEN 325 MG TABLET PO PRN (06:13)
[2019-06-22 06:21] LABS: INR 1.9; PT Patient Result 20.8 SECS (9.6-12.2)
[2019-06-22] MEDS: cefTRIAXone 1,000 MG in SYRINGE 1 EACH IV SCH (08:33)
[2019-06-22] MEDS: PANTOPRAZOLE 40 MG TABLET PO SCH ×3 (08:34→20:05)
[2019-06-22] MEDS: DOCUSATE SODIUM 100 MG CAPSULE PO SCH ×2 (08:34→20:03)
[2019-06-22] MEDS: ASPIRIN EC 81 MG TABLET PO SCH (08:34)
[2019-06-22] MEDS: ENOXAPARIN 40 MG/0.4 ML SYRINGE SUBCUT SCH ×2 (08:35→10:51)
[2019-06-22] MEDS: METOPROLOL TARTRATE 50 MG TABLET PO SCH (08:36)
[2019-06-22] MEDS: AMIODARONE INJ 450 MG in DEXTROSE 5% 241 ML IV SCH ×2 (08:37→23:53)
[2019-06-22] MEDS: SERTRALINE 50 MG TABLET PO SCH (08:58)
[2019-06-22] MEDS: rOPINIRole 1 MG TABLET PO SCH ×3 (08:58→20:04)
[2019-06-22] MEDS ORDERED: HEPARIN DRIP 25,000 UNITS/500 ML PREMIX IV SCH (09:00)
[2019-06-22] MEDS: DESITIN 4OZ/NYSTATIN 15 GRAM MIXTURE PASTE TOP SCH ×2 (09:11→20:05)
[2019-06-22] MEDS ORDERED: WARFARIN 7.5 MG TABLET PO SCH (18:00)
[2019-06-22] MEDS ORDERED: WARFARIN 5 MG TABLET PO SCH (18:00)
[2019-06-22] MEDS: OLANZapine 2.5 MG TABLET PO SCH (20:04)
[2019-06-23] MEDS: SODIUM CHLORIDE 0.9% 1,000 ML IV SCH (01:51)
[2019-06-23] MEDS: PHENYLEPHRINE DRIP 40 MG/250 ML PREMIX IV PRN ×2 (01:51→10:22)
[2019-06-23 07:15] LABS: PT Patient Result 58.2 SECS (9.6-12.2)
[2019-06-23 07:16] LABS: INR 5.4
[2019-06-23] MEDS: MAGNESIUM OXIDE 400 MG TABLET PO SCH (09:14)
[2019-06-23] MEDS: ASPIRIN EC 81 MG TABLET PO SCH (09:14)
[2019-06-23] MEDS: cefTRIAXone 1,000 MG in SYRINGE 1 EACH IV SCH (09:14)
[2019-06-23] MEDS: rOPINIRole 1 MG TABLET PO SCH ×3 (09:14→20:42)
[2019-06-23] MEDS: DOCUSATE SODIUM 100 MG CAPSULE PO SCH ×2 (09:14→20:42)
[2019-06-23] MEDS: DESITIN 4OZ/NYSTATIN 15 GRAM MIXTURE PASTE TOP SCH ×2 (09:15→20:45)
[2019-06-23] MEDS: SERTRALINE 50 MG TABLET PO SCH (09:15)
[2019-06-23] MEDS: PANTOPRAZOLE 40 MG TABLET PO SCH ×3 (09:15→20:42)
[2019-06-23] MEDS: FERROUS SULFATE 325 MG TABLET PO SCH (09:15)
[2019-06-23 09:58] LABS: Calcium 7.6 MG/DL (8.5-10.1)
[2019-06-23] MEDS: AMIODARONE 200 MG TABLET PO SCH (10:37)
[2019-06-23] MEDS: OLANZapine 2.5 MG TABLET PO SCH (20:42)
[2019-06-23] MEDS: ALPRAZolam 0.25 MG TABLET PO PRN (20:42)
[2019-06-24] MEDS: SODIUM CHLORIDE 0.9% 1,000 ML IV SCH (01:23)
[2019-06-24 04:48] LABS: Basophils # 0.1 10*3/uL (0.0-0.2); Basophils % 0.3 % (0.0-0.8); Eosinophils # 0.1 10*3/uL (0.0-0.87); Eosinophils % 0.3 % (0.00-10.9); Hematocrit 30.2 VOL% (35.7-47.0); Hemoglobin 9.7 GM/DL (12.0-16.0); Immature Granulocytes % 2.1 %; Immature Granulocytes Absolute 0.44 #; Lymphocytes # 0.5 10*3/uL (1.4-4.0); Lymphocytes % 2.5 % (21.3-54.2); Mean Corpuscular HGB Conc 32.1 GM/DL (32-36); Mean Corpuscular Volume 99.7 FL (87-102); Mean Platelet Volume 11.3 FL (9.6-12.0); Monocytes % 2.5 % (1.7-12.7); Neutrophils % 92.3 % (38.7-73.9); Platelet Count 139 T/CUMM (130-400); Red Blood Count 3.03 MC/CUMM (3.8-5.5); Red Cell Distribution Width 15.6 % (9.3-17.3); White Blood Count 21.1 T/CUMM (4-12)
[2019-06-24 05:11] LABS: Band Neutrophils 4 % (0-10); Burr Cells Slight; Hypochromasia 1+; Lymphocytes 3 % (20-55); Segmented Neutrophils 91 % (50-85); Total Cells Counted 100
[2019-06-24 05:12] LABS: Macrocytosis Slight; Platelet Estimate Adequate
[2019-06-24 05:18] LABS: PT Patient Result 102.7 SECS (9.6-12.2)
[2019-06-24 05:21] LABS: INR 9.6
[2019-06-24 05:39] LABS: Calcium 8.1 MG/DL (8.5-10.1); Osmolality,Calculated 288.5 MOS/KG (273-304)
[2019-06-24] MEDS: ASPIRIN EC 81 MG TABLET PO SCH (09:37)
[2019-06-24] MEDS: SERTRALINE 50 MG TABLET PO SCH (09:37)
[2019-06-24] MEDS: DOCUSATE SODIUM 100 MG CAPSULE PO SCH ×2 (09:37→20:25)
[2019-06-24] MEDS: cefTRIAXone 1,000 MG in SYRINGE 1 EACH IV SCH (09:37)
[2019-06-24] MEDS: PANTOPRAZOLE 40 MG TABLET PO SCH ×2 (09:37→20:25)
[2019-06-24] MEDS: rOPINIRole 1 MG TABLET PO SCH ×3 (09:37→20:24)
[2019-06-24] MEDS: AMIODARONE 200 MG TABLET PO SCH (09:38)
[2019-06-24] MEDS: DESITIN 4OZ/NYSTATIN 15 GRAM MIXTURE PASTE TOP SCH ×2 (11:20→20:25)
[2019-06-24] MEDS ORDERED: MAGNESIUM SULF RIDER 2 GM in PREMIX 1 EACH IV ONE (14:10)
[2019-06-24] MEDS: OLANZapine 2.5 MG TABLET PO SCH (20:24)
[2019-06-25] MEDS: ALPRAZolam 0.25 MG TABLET PO PRN ×2 (00:44→21:36)
[2019-06-25] MEDS: SODIUM CHLORIDE 0.9% 1,000 ML IV SCH ×2 (01:14→23:55)
[2019-06-25 05:24] LABS: Basophils % 0.2 % (0.0-0.8); Eosinophils # 0.2 10*3/uL (0.0-0.87); Eosinophils % 1.4 % (0.00-10.9); Hematocrit 32.2 VOL% (35.7-47.0); Immature Granulocytes % 0.4 %; Immature Granulocytes Absolute 0.06 #; Lymphocytes # 0.7 10*3/uL (1.4-4.0); Mean Corpuscular HGB Conc 31.1 GM/DL (32-36); Mean Corpuscular Volume 99.1 FL (87-102); Mean Platelet Volume 11.7 FL (9.6-12.0); Monocytes % 4.2 % (1.7-12.7); Neutrophils % 89.8 % (38.7-73.9); Platelet Count 147 T/CUMM (130-400); Red Blood Count 3.25 MC/CUMM (3.8-5.5); Red Cell Distribution Width 15.6 % (9.3-17.3); White Blood Count 16.1 T/CUMM (4-12)
[2019-06-25 05:37] LABS: PT Patient Result 92.3 SECS (9.6-12.2)
[2019-06-25 05:40] LABS: INR 8.7
[2019-06-25 05:53] LABS: Band Neutrophils 1 % (0-10); Burr Cells Slight; Hypochromasia 1+; Lymphocytes 3 % (20-55); Ovalocytes Slight; Platelet Estimate Normal; Segmented Neutrophils 90 % (50-85); Total Cells Counted 100
[2019-06-25 05:54] LABS: Blood Urea Nitrogen 41 MG/DL (7-18); Calcium 8.7 MG/DL (8.5-10.1); Glucose 118 MG/DL (74-106); Macrocytosis Slight; Osmolality,Calculated 289.4 MOS/KG (273-304)
[2019-06-25 05:55] LABS: Troponin I 0.207 NG/ML (0.00-0.045)
[2019-06-25] MEDS: rOPINIRole 1 MG TABLET PO SCH ×3 (08:36→21:36)
[2019-06-25] MEDS: DOCUSATE SODIUM 100 MG CAPSULE PO SCH ×2 (08:36→21:36)
[2019-06-25] MEDS: MAGNESIUM OXIDE 400 MG TABLET PO SCH (08:36)
[2019-06-25] MEDS: AMIODARONE 200 MG TABLET PO SCH (08:36)
[2019-06-25] MEDS: ASPIRIN EC 81 MG TABLET PO SCH (08:36)
[2019-06-25] MEDS: cefTRIAXone 1,000 MG in SYRINGE 1 EACH IV SCH (08:37)
[2019-06-25] MEDS: SERTRALINE 50 MG TABLET PO SCH (08:37)
[2019-06-25] MEDS: FERROUS SULFATE 325 MG TABLET PO SCH (08:37)
[2019-06-25] MEDS: PANTOPRAZOLE 40 MG TABLET PO SCH ×2 (08:37→21:36)
[2019-06-25] MEDS: DESITIN 4OZ/NYSTATIN 15 GRAM MIXTURE PASTE TOP SCH ×2 (10:15→21:37)
[2019-06-25] MEDS: METOPROLOL TARTRATE 25 MG TABLET PO SCH ×2 (12:25→21:36)
[2019-06-25] MEDS: OLANZapine 2.5 MG TABLET PO SCH (21:36)
[2019-06-26 06:16] LABS: INR 4.8
[2019-06-26 06:17] LABS: PT Patient Result 51.8 SECS (9.6-12.2)
[2019-06-26] MEDS: rOPINIRole 1 MG TABLET PO SCH ×3 (09:07→21:59)
[2019-06-26] MEDS: AMIODARONE 200 MG TABLET PO SCH (09:07)
[2019-06-26] MEDS: SERTRALINE 50 MG TABLET PO SCH (09:07)
[2019-06-26] MEDS: ASPIRIN EC 81 MG TABLET PO SCH (09:07)
[2019-06-26] MEDS: DOCUSATE SODIUM 100 MG CAPSULE PO SCH ×2 (09:07→22:00)
[2019-06-26] MEDS: PANTOPRAZOLE 40 MG TABLET PO SCH ×2 (09:07→22:00)
[2019-06-26] MEDS: METOPROLOL TARTRATE 25 MG TABLET PO SCH ×2 (09:07→22:00)
[2019-06-26] MEDS: cefTRIAXone 1,000 MG in SYRINGE 1 EACH IV SCH (09:08)
[2019-06-26] MEDS: DESITIN 4OZ/NYSTATIN 15 GRAM MIXTURE PASTE TOP SCH ×2 (09:08→22:01)
[2019-06-26] MEDS ORDERED: POLYETHYLENE GLYCOL POWDER 17 GM PACK PO PRN (11:27)
[2019-06-26] MEDS: ACETAMINOPHEN 325 MG TABLET PO PRN (22:00)
[2019-06-26] MEDS: OLANZapine 2.5 MG TABLET PO SCH (22:00)
[2019-06-26] MEDS: SODIUM CHLORIDE 0.9% 1,000 ML IV SCH (23:44)
[2019-06-27 04:42] LABS: INR 2.9
[2019-06-27] MEDS ORDERED: SODIUM CHLORIDE 0.9% 100 ML IV ONE (08:22)
[2019-06-27] MEDS: cefTRIAXone 1,000 MG in SYRINGE 1 EACH IV SCH (08:59)
[2019-06-27] MEDS: DOCUSATE SODIUM 100 MG CAPSULE PO SCH (09:42)
[2019-06-27] MEDS: ASPIRIN EC 81 MG TABLET PO SCH (09:42)
[2019-06-27] MEDS: METOPROLOL TARTRATE 25 MG TABLET PO SCH (09:42)
[2019-06-27] MEDS: AMIODARONE 200 MG TABLET PO SCH (09:42)
[2019-06-27] MEDS: FERROUS SULFATE 325 MG TABLET PO SCH (09:42)
[2019-06-27] MEDS: MAGNESIUM OXIDE 400 MG TABLET PO SCH (09:42)
[2019-06-27] MEDS: PANTOPRAZOLE 40 MG TABLET PO SCH (09:43)
[2019-06-27] MEDS: rOPINIRole 1 MG TABLET PO SCH ×2 (09:43→15:06)
[2019-06-27] MEDS: SERTRALINE 50 MG TABLET PO SCH (09:43)
[2019-06-27] MEDS: DESITIN 4OZ/NYSTATIN 15 GRAM MIXTURE PASTE TOP SCH (09:45)
[2019-06-27 11:08] VITALS: BP 103/49
[2019-06-27] MEDS ORDERED: WARFARIN 5 MG TABLET PO SCH (18:00)
[2019-06-28] MEDS ORDERED: WARFARIN 2.5 MG TABLET PO SCH (18:00)
== END 2019-06-27 15:38 | disposition home health service (06) | DRG 947 ==
LOC: N.ED 18:22 → N.EDINP 18:22 → N.4E 23:03 → N.CC 06-21 23:52 → N.TELES 06-24 20:03
PROVIDERS: ADMIT Family Medicine; ATTEND Family Medicine

== ENCOUNTER 2020-06-07 13:12 | Inpatient (IN) ==
[2020-06-07 15:35] LABS: Basophils % 0.1 % (0.0-0.8); Eosinophils % 0.1 % (0.00-10.9); Hematocrit 27.3 VOL% (35.7-47.0); Hemoglobin 8.6 GM/DL (12.0-16.0); Immature Granulocytes % 0.9 %; Immature Granulocytes Absolute 0.19 #; Mean Corpuscular HGB Conc 31.5 GM/DL (32-36); Mean Corpuscular Volume 101.1 FL (87-102); Mean Platelet Volume 10.6 FL (9.6-12.0); Monocytes % 3.3 % (1.7-12.7); Neutrophils % 90.6 % (38.7-73.9); Platelet Count 233 T/CUMM (130-400); Red Cell Distribution Width 13.8 % (9.3-17.3); White Blood Count 20.9 T/CUMM (4-12)
[2020-06-07 15:56] LABS: Albumin 2.5 G/DL (3.4-5.0); Bilirubin,Total 0.4 MG/DL (0.2-1.0); Calcium 8.6 MG/DL (8.5-10.1); Osmolality,Calculated 289.7 MOS/KG (273-304); Total Protein 6.8 G/DL (6.4-8.3)
[2020-06-07 16:15] LABS: Lymphocytes 2 % (20-55); Segmented Neutrophils 95 % (50-85); Total Cells Counted 100
[2020-06-07 16:16] LABS: Hypochromasia 1+; Microcytosis 1+; Platelet Estimate Adequate
[2020-06-07 16:32] LABS: INR 12.7
[2020-06-07 17:38] LABS: Apearance,Urine CLOUDY (Clear); Bacteria,Urine Many /HPF (Few); Bilirubin,Urine Negative (Negative); Blood, Urine Large mg/dL (Negative); Glucose,Urine (UA) Negative (Negative); Ketones,Urine Negative (Negative); Mucus,Urine Occasional /LPF (Occasional); Nitrite,Urine Negative (Negative); Protein,Urine 100 MG/DL; RBC,Urine 613 /HPF (0-4); Urine Color Yellow (Yellow); Urine Specific Gravity 1.012 (1.001-1.035); Urine Urobilinogen < 2.0 EU/DL (0.2-1.0); WBC,Urine 317 /HPF (0-6)
[2020-06-07] MEDS ORDERED: PHYTONADIONE 10 MG/1 ML AMP SUBCUT STA (17:52)
[2020-06-07] MEDS ORDERED: cefTRIAXone 1,000 MG in SODIUM CHLORIDE 0.9% 100 ML IV STA (17:59)
[2020-06-07] MEDS ORDERED: SODIUM CHLORIDE 0.9% 250 ML IV STA (18:21)
[2020-06-07] MEDS ORDERED: ONDANSETRON 4 MG/2 ML VIAL IV PRN (20:27)
[2020-06-07] MEDS: ACETAMINOPHEN 325 MG TABLET PO PRN (21:57)
[2020-06-07] MEDS: PANTOPRAZOLE 40 MG TABLET PO SCH (22:10)
[2020-06-07] MEDS: DOCUSATE SODIUM 100 MG CAPSULE PO SCH (22:10)
[2020-06-08 04:48] LABS: PT Patient Result 51.2 SECS (9.8-11.9)
[2020-06-08 04:56] LABS: INR 5.2
[2020-06-08] MEDS ORDERED: NITROGLYCERIN SL 0.4 MG TABLET SL PRN (07:36)
[2020-06-08] MEDS ORDERED: LOPERAMIDE 2 MG CAPSULE PO PRN (07:36)
[2020-06-08] MEDS ORDERED: ALPRAZolam 0.25 MG TABLET PO PRN (07:36)
[2020-06-08] MEDS ORDERED: CARBOXYMETHYLCELLULOSE 1% OPH SOLN BOTH EYES PRN (07:36)
[2020-06-08] MEDS ORDERED: PROMETHAZINE 25 MG TABLET PO PRN (07:36)
[2020-06-08] MEDS ORDERED: POLYETHYLENE GLYCOL POWDER 17 GM PACK PO PRN (07:36)
[2020-06-08] MEDS ORDERED: FUROSEMIDE 20 MG TABLET PO PRN (07:36)
[2020-06-08] MEDS ORDERED: SIMETHICONE CHEW 80 MG TABLET PO PRN (07:36)
[2020-06-08] MEDS ORDERED: ERGOCALCIFEROL 50,000 UNIT CAPSULE PO SCH (09:00)
[2020-06-08] MEDS: ASPIRIN EC 81 MG TABLET PO SCH (09:15)
[2020-06-08] MEDS: FERROUS SULFATE 325 MG TABLET PO SCH (09:15)
[2020-06-08] MEDS: AMIODARONE 200 MG TABLET PO SCH (09:15)
[2020-06-08] MEDS: DOCUSATE SODIUM 100 MG CAPSULE PO SCH ×2 (09:15→21:40)
[2020-06-08] MEDS: MAGNESIUM GLUCONATE 500 MG TABLET PO SCH (09:15)
[2020-06-08] MEDS: SERTRALINE 50 MG TABLET PO SCH (09:15)
[2020-06-08] MEDS: rOPINIRole 1 MG TABLET PO SCH ×3 (09:15→21:39)
[2020-06-08] MEDS: cefTRIAXone 1,000 MG in SYRINGE 1 EACH IV SCH (09:16)
[2020-06-08] MEDS: METOPROLOL TARTRATE 25 MG TABLET PO SCH ×2 (09:16→21:40)
[2020-06-08] MEDS: DESITIN 4OZ/NYSTATIN 15 GRAM MIXTURE PASTE TOP SCH ×2 (09:16→21:39)
[2020-06-08] MEDS: PANTOPRAZOLE 40 MG TABLET PO SCH (09:16)
[2020-06-08] MEDS: traMADol 50 MG TABLET PO PRN ×2 (11:02→21:39)
[2020-06-08] MEDS ORDERED: WARFARIN 2.5 MG TABLET PO SCH (18:00)
[2020-06-08] MEDS: AMITRIPTYLINE 50 MG TABLET PO SCH (21:40)
[2020-06-08] MEDS: ALPRAZolam 0.5 MG TABLET PO SCH (21:46)
[2020-06-08] MEDS: OLANZapine 2.5 MG TABLET PO SCH (21:46)
[2020-06-09 05:41] LABS: INR 1.3; PT Patient Result 13.3 SECS (9.8-11.9)
[2020-06-09] MEDS: AMIODARONE 200 MG TABLET PO SCH (08:40)
[2020-06-09] MEDS: MULTIVITAMIN (BEROCCA) TABLET PO SCH (08:40)
[2020-06-09] MEDS: rOPINIRole 1 MG TABLET PO SCH ×3 (08:40→21:17)
[2020-06-09] MEDS: ASPIRIN EC 81 MG TABLET PO SCH (08:40)
[2020-06-09] MEDS: PANTOPRAZOLE 40 MG TABLET PO SCH (08:40)
[2020-06-09] MEDS: DOCUSATE SODIUM 100 MG CAPSULE PO SCH ×2 (08:40→21:18)
[2020-06-09] MEDS: DESITIN 4OZ/NYSTATIN 15 GRAM MIXTURE PASTE TOP SCH ×2 (08:41→21:18)
[2020-06-09] MEDS: cefTRIAXone 1,000 MG in SYRINGE 1 EACH IV SCH (08:41)
[2020-06-09] MEDS: SERTRALINE 50 MG TABLET PO SCH (08:41)
[2020-06-09] MEDS: METOPROLOL TARTRATE 25 MG TABLET PO SCH ×2 (08:41→21:17)
[2020-06-09] MEDS: ENOXAPARIN 30 MG/0.3 ML SYRINGE SUBCUT SCH ×2 (08:55→21:16)
[2020-06-09] MEDS ORDERED: WARFARIN 5 MG TABLET PO SCH (18:00)
[2020-06-09] MEDS: OLANZapine 2.5 MG TABLET PO SCH (21:18)
[2020-06-09] MEDS: AMITRIPTYLINE 50 MG TABLET PO SCH (21:18)
[2020-06-09] MEDS: ALPRAZolam 0.5 MG TABLET PO SCH (21:18)
[2020-06-10 06:52] LABS: INR 1.2; PT Patient Result 12.8 SECS (9.8-11.9)
[2020-06-10] MEDS: rOPINIRole 1 MG TABLET PO SCH ×3 (08:22→23:20)
[2020-06-10] MEDS: SERTRALINE 50 MG TABLET PO SCH (08:23)
[2020-06-10] MEDS: ASPIRIN EC 81 MG TABLET PO SCH (08:23)
[2020-06-10] MEDS: METOPROLOL TARTRATE 25 MG TABLET PO SCH ×2 (08:23→23:10)
[2020-06-10] MEDS: MULTIVITAMIN (BEROCCA) TABLET PO SCH (08:23)
[2020-06-10] MEDS: FERROUS SULFATE 325 MG TABLET PO SCH (08:23)
[2020-06-10] MEDS: PANTOPRAZOLE 40 MG TABLET PO SCH (08:23)
[2020-06-10] MEDS: MAGNESIUM GLUCONATE 500 MG TABLET PO SCH (08:24)
[2020-06-10] MEDS: DOCUSATE SODIUM 100 MG CAPSULE PO SCH ×2 (08:24→23:10)
[2020-06-10] MEDS: AMIODARONE 200 MG TABLET PO SCH (08:24)
[2020-06-10] MEDS: cefTRIAXone 1,000 MG in SYRINGE 1 EACH IV SCH (08:25)
[2020-06-10] MEDS: ENOXAPARIN 30 MG/0.3 ML SYRINGE SUBCUT SCH ×2 (08:25→23:09)
[2020-06-10] MEDS: DESITIN 4OZ/NYSTATIN 15 GRAM MIXTURE PASTE TOP SCH ×2 (08:26→23:11)
[2020-06-10] MEDS: WARFARIN 10 MG TABLET PO SCH (19:00)
[2020-06-10] MEDS: AMITRIPTYLINE 50 MG TABLET PO SCH (23:10)
[2020-06-10] MEDS: ALPRAZolam 0.5 MG TABLET PO SCH (23:11)
[2020-06-10] MEDS: OLANZapine 2.5 MG TABLET PO SCH (23:23)
[2020-06-11 06:42] LABS: INR 1.8; PT Patient Result 18.7 SECS (9.8-11.9)
[2020-06-11] MEDS: rOPINIRole 1 MG TABLET PO SCH ×3 (08:47→20:41)
[2020-06-11] MEDS: MULTIVITAMIN (BEROCCA) TABLET PO SCH (08:47)
[2020-06-11] MEDS: cefTRIAXone 1,000 MG in SYRINGE 1 EACH IV SCH (08:47)
[2020-06-11] MEDS: SERTRALINE 50 MG TABLET PO SCH (08:48)
[2020-06-11] MEDS: ASPIRIN EC 81 MG TABLET PO SCH (08:48)
[2020-06-11] MEDS: DESITIN 4OZ/NYSTATIN 15 GRAM MIXTURE PASTE TOP SCH ×2 (08:48→20:42)
[2020-06-11] MEDS: METOPROLOL TARTRATE 25 MG TABLET PO SCH ×2 (08:48→20:41)
[2020-06-11] MEDS: AMIODARONE 200 MG TABLET PO SCH (08:48)
[2020-06-11] MEDS: ENOXAPARIN 30 MG/0.3 ML SYRINGE SUBCUT SCH ×2 (08:48→20:41)
[2020-06-11] MEDS: PANTOPRAZOLE 40 MG TABLET PO SCH (08:48)
[2020-06-11] MEDS: DOCUSATE SODIUM 100 MG CAPSULE PO SCH ×2 (08:48→20:41)
[2020-06-11] MEDS: WARFARIN 10 MG TABLET PO SCH (17:39)
[2020-06-11] MEDS: traMADol 50 MG TABLET PO PRN (18:15)
[2020-06-11] MEDS: ALPRAZolam 0.5 MG TABLET PO SCH (20:40)
[2020-06-11] MEDS: OLANZapine 2.5 MG TABLET PO SCH (20:41)
[2020-06-11] MEDS: AMITRIPTYLINE 50 MG TABLET PO SCH (20:41)
[2020-06-12] MEDS: ENOXAPARIN 30 MG/0.3 ML SYRINGE SUBCUT SCH ×2 (09:57→20:22)
[2020-06-12] MEDS: cefTRIAXone 1,000 MG in SYRINGE 1 EACH IV SCH (09:57)
[2020-06-12] MEDS: MULTIVITAMIN (BEROCCA) TABLET PO SCH (09:57)
[2020-06-12] MEDS: ASPIRIN EC 81 MG TABLET PO SCH (09:57)
[2020-06-12] MEDS: DOCUSATE SODIUM 100 MG CAPSULE PO SCH ×2 (09:57→20:22)
[2020-06-12] MEDS: DESITIN 4OZ/NYSTATIN 15 GRAM MIXTURE PASTE TOP SCH ×2 (09:58→20:23)
[2020-06-12] MEDS: rOPINIRole 1 MG TABLET PO SCH ×3 (09:58→20:22)
[2020-06-12] MEDS: SERTRALINE 50 MG TABLET PO SCH (09:58)
[2020-06-12] MEDS: PANTOPRAZOLE 40 MG TABLET PO SCH (09:58)
[2020-06-12] MEDS: MAGNESIUM GLUCONATE 500 MG TABLET PO SCH (09:58)
[2020-06-12] MEDS: FERROUS SULFATE 325 MG TABLET PO SCH (09:58)
[2020-06-12] MEDS: AMIODARONE 200 MG TABLET PO SCH (11:08)
[2020-06-12] MEDS: METOPROLOL TARTRATE 25 MG TABLET PO SCH ×2 (11:08→20:22)
[2020-06-12] MEDS ORDERED: WARFARIN 7.5 MG TABLET PO SCH (18:00)
[2020-06-12] MEDS: ALPRAZolam 0.5 MG TABLET PO SCH (20:22)
[2020-06-12] MEDS: AMITRIPTYLINE 50 MG TABLET PO SCH (20:22)
[2020-06-12] MEDS: OLANZapine 2.5 MG TABLET PO SCH (20:22)
[2020-06-13 06:39] LABS: Basophils # 0.1 10*3/uL (0.0-0.2); Basophils % 0.4 % (0.0-0.8); Eosinophils # 0.3 10*3/uL (0.0-0.87); Eosinophils % 2.2 % (0.00-10.9); Hematocrit 23.4 VOL% (35.7-47.0); Hemoglobin 7.1 GM/DL (12.0-16.0); Immature Granulocytes % 1.5 %; Immature Granulocytes Absolute 0.21 #; Lymphocytes # 1.4 10*3/uL (1.4-4.0); Lymphocytes % 9.7 % (21.3-54.2); Mean Corpuscular HGB Conc 30.3 GM/DL (32-36); Mean Corpuscular Volume 105.4 FL (87-102); Mean Platelet Volume 10.3 FL (9.6-12.0); Monocytes % 5.2 % (1.7-12.7); Platelet Count 405 T/CUMM (130-400); Red Blood Count 2.22 MC/CUMM (3.8-5.5); Red Cell Distribution Width 14.1 % (9.3-17.3); White Blood Count 14.3 T/CUMM (4-12)
[2020-06-13 06:47] LABS: Albumin 2.4 G/DL (3.4-5.0); Bilirubin,Total 0.4 MG/DL (0.2-1.0); Calcium 8.5 MG/DL (8.5-10.1); Osmolality,Calculated 289.4 MOS/KG (273-304); Total Protein 6.4 G/DL (6.4-8.3)
[2020-06-13 06:52] LABS: PT Patient Result 61.2 SECS (9.8-11.9)
[2020-06-13 06:57] LABS: INR 6.3
[2020-06-13] MEDS: AMIODARONE 200 MG TABLET PO SCH (09:17)
[2020-06-13] MEDS: MULTIVITAMIN (BEROCCA) TABLET PO SCH (09:17)
[2020-06-13] MEDS: ASPIRIN EC 81 MG TABLET PO SCH (09:17)
[2020-06-13] MEDS: ENOXAPARIN 30 MG/0.3 ML SYRINGE SUBCUT SCH ×2 (09:17→20:19)
[2020-06-13] MEDS: PANTOPRAZOLE 40 MG TABLET PO SCH (09:17)
[2020-06-13] MEDS: cefTRIAXone 1,000 MG in SYRINGE 1 EACH IV SCH (09:17)
[2020-06-13] MEDS: METOPROLOL TARTRATE 25 MG TABLET PO SCH ×2 (09:17→20:19)
[2020-06-13] MEDS: SERTRALINE 50 MG TABLET PO SCH (09:17)
[2020-06-13] MEDS: rOPINIRole 1 MG TABLET PO SCH ×3 (09:17→20:18)
[2020-06-13] MEDS: DOCUSATE SODIUM 100 MG CAPSULE PO SCH ×2 (09:17→20:18)
[2020-06-13] MEDS: DESITIN 4OZ/NYSTATIN 15 GRAM MIXTURE PASTE TOP SCH ×2 (09:23→20:20)
[2020-06-13] MEDS ORDERED: MAGNESIUM SULF RIDER 2 GM in PREMIX 1 EACH IV ONE (17:48)
[2020-06-13] MEDS ORDERED: SODIUM CHLORIDE 0.9% 1,000 ML IV PRN (17:49)
[2020-06-13] MEDS: AMITRIPTYLINE 50 MG TABLET PO SCH (20:18)
[2020-06-13] MEDS: OLANZapine 2.5 MG TABLET PO SCH (20:18)
[2020-06-13] MEDS: ALPRAZolam 0.5 MG TABLET PO SCH (20:20)
[2020-06-14] MEDS: ACETAMINOPHEN 325 MG TABLET PO PRN (00:08)
[2020-06-14] MEDS ORDERED: FUROSEMIDE 20 MG/2 ML VIAL IV ONE (01:38)
[2020-06-14 06:05] LABS: Basophils # 0.1 10*3/uL (0.0-0.2); Basophils % 0.6 % (0.0-0.8); Eosinophils # 0.4 10*3/uL (0.0-0.87); Eosinophils % 3.4 % (0.00-10.9); Hematocrit 29.5 VOL% (35.7-47.0); Hemoglobin 9.3 GM/DL (12.0-16.0); Immature Granulocytes % 1.7 %; Immature Granulocytes Absolute 0.19 #; Lymphocytes # 1.5 10*3/uL (1.4-4.0); Lymphocytes % 13.3 % (21.3-54.2); Mean Corpuscular HGB Conc 31.5 GM/DL (32-36); Mean Corpuscular Volume 100.7 FL (87-102); Mean Platelet Volume 10.2 FL (9.6-12.0); Monocytes % 5.1 % (1.7-12.7); Neutrophils % 75.9 % (38.7-73.9); Platelet Count 371 T/CUMM (130-400); Red Blood Count 2.93 MC/CUMM (3.8-5.5); Red Cell Distribution Width 15.7 % (9.3-17.3); White Blood Count 10.9 T/CUMM (4-12)
[2020-06-14 06:12] LABS: INR 4.6; PT Patient Result 45.6 SECS (9.8-11.9)
[2020-06-14 06:28] LABS: Calcium 8.5 MG/DL (8.5-10.1); Osmolality,Calculated 285.5 MOS/KG (273-304)
[2020-06-14 07:16] LABS: Hematocrit 31.2 VOL% (35.7-47.0)
[2020-06-14] MEDS: METOPROLOL TARTRATE 25 MG TABLET PO SCH (08:37)
[2020-06-14] MEDS: MAGNESIUM GLUCONATE 500 MG TABLET PO SCH (08:37)
[2020-06-14] MEDS: DESITIN 4OZ/NYSTATIN 15 GRAM MIXTURE PASTE TOP SCH (08:37)
[2020-06-14] MEDS: PANTOPRAZOLE 40 MG TABLET PO SCH (08:37)
[2020-06-14] MEDS: SERTRALINE 50 MG TABLET PO SCH (08:37)
[2020-06-14] MEDS: rOPINIRole 1 MG TABLET PO SCH (08:37)
[2020-06-14] MEDS: FERROUS SULFATE 325 MG TABLET PO SCH (08:37)
[2020-06-14] MEDS: DOCUSATE SODIUM 100 MG CAPSULE PO SCH (08:37)
[2020-06-14] MEDS: ASPIRIN EC 81 MG TABLET PO SCH (08:37)
[2020-06-14] MEDS: ENOXAPARIN 30 MG/0.3 ML SYRINGE SUBCUT SCH (08:37)
[2020-06-14] MEDS: AMIODARONE 200 MG TABLET PO SCH (08:37)
[2020-06-14] MEDS: MULTIVITAMIN (BEROCCA) TABLET PO SCH (08:37)
[2020-06-14] MEDS ORDERED: POLYETHYLENE GLYCOL POWDER 17 GM PACK PO SCH (09:00)
[2020-06-14] MEDS: cefTRIAXone 1,000 MG in SYRINGE 1 EACH IV SCH (09:49)
[2020-06-14 13:51] VITALS: BP 118/65
[2020-06-14] MEDS ORDERED: WARFARIN 5 MG TABLET PO SCH (18:00)
== END 2020-06-14 13:14 | disposition home or self-care (01) | DRG 690 ==
LOC: N.ED 13:12 → N.EDINP 17:57 → N.TELEN 06-08 03:19
PROVIDERS: ADMIT Family Medicine; ATTEND Family Medicine

== ENCOUNTER 2021-10-06 12:36 | Inpatient (IN) ==
[2021-10-06] MEDS ORDERED: SODIUM CHLORIDE 0.9% 1,000 ML IV STA ×2 (12:54→14:53)
[2021-10-06 12:59] LABS: Basophils % 0.1 % (0.0-0.8); Hematocrit 26.3 VOL% (35.7-47.0); Immature Granulocytes % 0.3 %; Immature Granulocytes Absolute 0.05 #; Lymphocytes # 0.5 10*3/uL (1.4-4.0); Lymphocytes % 3.6 % (21.3-54.2); Mean Corpuscular HGB Conc 30.4 GM/DL (32-36); Mean Corpuscular Volume 108.2 FL (87-102); Mean Platelet Volume 9.8 FL (9.6-12.0); Monocytes % 2.3 % (1.7-12.7); Neutrophils % 93.7 % (38.7-73.9); Platelet Count 162 T/CUMM (130-400); Red Blood Count 2.43 MC/CUMM (3.8-5.5); Red Cell Distribution Width 13.7 % (9.3-17.3); White Blood Count 14.9 T/CUMM (4-12)
[2021-10-06 13:10] LABS: INR 3.2; PT Patient Result 32.8 SECS (10.5-12.0); Partial Thromboplastin Time 48.5 SECS (23.8-32.1)
[2021-10-06 13:22] LABS: Band Neutrophils 22 % (0-10); Lymphocytes 2 % (20-55); Platelet Estimate Normal; Segmented Neutrophils 75 % (50-85); Total Cells Counted 100
[2021-10-06 13:23] LABS: Anisocytosis 1+; Burr Cells Few; Macrocytosis 1+; Ovalocytes Few
[2021-10-06 13:35] LABS: Albumin 2.6 G/DL (3.4-5.0); Bilirubin,Total 0.5 MG/DL (0.20-1.00); Calcium 7.9 MG/DL (8.5-10.1); Potassium 5.1 MMOL/L (3.5-5.1); Total Protein 6.6 G/DL (6.4-8.2)
[2021-10-06 13:39] LABS: Amorphous Crystals,Urine Few /HPF (Few); Bilirubin,Urine Negative (Negative); Blood, Urine Small mg/dL (Negative); Glucose,Urine (UA) Negative (Negative); Ketones,Urine Negative (Negative); Nitrite,Urine Negative (Negative); Protein,Urine 100 MG/DL; Urine Appearance CLOUDY (Clear); Urine Color Red (Yellow); Urine Specific Gravity 1.015 (1.001-1.035); Urine Urobilinogen < 2.0 EU/DL (<2.0)
[2021-10-06] MEDS ORDERED: ACETAMINOPHEN 325 MG TABLET PO ONE (14:46)
[2021-10-06] MEDS ORDERED: ACETAMINOPHEN 325 MG TABLET PO PRN (14:56)
[2021-10-06] MEDS ORDERED: ONDANSETRON 4 MG/2 ML VIAL IV PRN (14:56)
[2021-10-06] MEDS: cefTRIAXone 1,000 MG in SODIUM CHLORIDE 0.9% 100 ML IV SCH (17:01)
[2021-10-06] MEDS ORDERED: INFLUENZA VIRUS VACCINE 0.5 ML SYRINGE IM ONE (18:54)
[2021-10-06] MEDS: DOCUSATE SODIUM 100 MG CAPSULE PO SCH (23:02)
[2021-10-07] MEDS ORDERED: METOPROLOL TARTRATE 25 MG TABLET PO ONE (00:06)
[2021-10-07] MEDS ORDERED: SODIUM CHLORIDE 0.9% 250 ML IV ONE (00:07)
[2021-10-07] MEDS: SODIUM CHLORIDE 0.9% 1,000 ML IV SCH ×4 (03:07→22:12)
[2021-10-07 06:21] LABS: Calcium 7.9 MG/DL (8.5-10.1); Potassium 3.9 MMOL/L (3.5-5.1)
[2021-10-07 06:24] LABS: Osmolality,Calculated 282.4 MOS/KG (273-304)
[2021-10-07] MEDS ORDERED: DEXTROSE 50% 25 GM/50 ML SYRINGE IV PRN (06:32)
[2021-10-07] MEDS: PANTOPRAZOLE 40 MG TABLET PO SCH (08:30)
[2021-10-07] MEDS: DOCUSATE SODIUM 100 MG CAPSULE PO SCH ×2 (08:30→21:08)
[2021-10-07] MEDS: cefTRIAXone 1,000 MG in SODIUM CHLORIDE 0.9% 100 ML IV SCH (15:46)
[2021-10-07] MEDS: ALPRAZolam 0.5 MG TABLET PO PRN (17:22)
[2021-10-08] MEDS: SODIUM CHLORIDE 0.9% 1,000 ML IV SCH (06:29)
[2021-10-08] MEDS: PANTOPRAZOLE 40 MG TABLET PO SCH ×2 (09:12→09:27)
[2021-10-08] MEDS: DOCUSATE SODIUM 100 MG CAPSULE PO SCH ×4 (09:12→21:26)
[2021-10-08] MEDS ORDERED: FUROSEMIDE 20 MG/2 ML VIAL ONE (10:03)
[2021-10-08] MEDS ORDERED: METOPROLOL TARTRATE 5 MG/5 ML VIAL IV ONE ×3 (10:10→15:03)
[2021-10-08] MEDS ORDERED: MAGNESIUM SULF RIDER 2 GM/50 ML PREMIX IV ONE (10:13)
[2021-10-08 10:17] LABS: Basophils % 0.1 % (0.0-0.8); Eosinophils # 0.1 10*3/uL (0.0-0.87); Eosinophils % 0.2 % (0.00-10.9); Hematocrit 29.7 VOL% (35.7-47.0); Hemoglobin 8.9 GM/DL (12.0-16.0); Immature Granulocytes Absolute 0.22 #; Lymphocytes # 0.8 10*3/uL (1.4-4.0); Lymphocytes % 3.6 % (21.3-54.2); Mean Corpuscular Volume 108.8 FL (87-102); Mean Platelet Volume 10.4 FL (9.6-12.0); Monocytes % 3.3 % (1.7-12.7); NRBC # 0.02 10*3/uL; Neutrophils % 91.8 % (38.7-73.9); Platelet Count 150 T/CUMM (130-400); Red Blood Count 2.73 MC/CUMM (3.8-5.5); Red Cell Distribution Width 14.7 % (9.3-17.3); White Blood Count 22.5 T/CUMM (4-12)
[2021-10-08] MEDS ORDERED: DIGOXIN 0.5 MG/2 ML AMP ONE (10:25)
[2021-10-08 10:36] LABS: Albumin 2.3 G/DL (3.4-5.0); Bilirubin,Total 0.4 MG/DL (0.20-1.00); Calcium 8.2 MG/DL (8.5-10.1); Osmolality,Calculated 290.3 MOS/KG (273-304); Potassium 3.6 MMOL/L (3.5-5.1); Total Protein 6.1 G/DL (6.4-8.2)
[2021-10-08 10:37] LABS: Anisocytosis 2+; Band Neutrophils 14 % (0-10); Burr Cells 1+; Lymphocytes 2 % (20-55); Platelet Estimate Normal; Segmented Neutrophils 78 % (50-85); Total Cells Counted 100
[2021-10-08 10:38] LABS: Macrocytosis 1+
[2021-10-08] MEDS: METOPROLOL TARTRATE 50 MG TABLET PO SCH ×2 (11:07→21:13)
[2021-10-08] MEDS ORDERED: FUROSEMIDE 20 MG/2 ML VIAL IV ONE ×2 (11:14→15:03)
[2021-10-08] MEDS ORDERED: DIGOXIN 0.5 MG/2 ML AMP IV ONE ×2 (11:14→17:00)
[2021-10-08] MEDS: SERTRALINE 50 MG TABLET PO SCH (11:25)
[2021-10-08] MEDS ORDERED: SODIUM CHLORIDE 0.9% 1,000 ML IV SCH (14:00)
[2021-10-08] MEDS: VANCOMYCIN INJ 750 MG in SODIUM CHLORIDE 0.9% 250 ML IV SCH (15:08)
[2021-10-08 15:54] LABS: PT Patient Result 30.7 SECS (10.5-12.0)
[2021-10-08] MEDS: rOPINIRole 1 MG TABLET PO SCH ×2 (16:04→21:13)
[2021-10-08] MEDS: cefTRIAXone 1,000 MG in SODIUM CHLORIDE 0.9% 100 ML IV SCH (18:23)
[2021-10-08] MEDS: OLANZapine 2.5 MG TABLET PO SCH (21:13)
[2021-10-09] MEDS: ALPRAZolam 0.5 MG TABLET PO PRN (01:36)
[2021-10-09] MEDS ORDERED: ALPRAZolam 0.5 MG TABLET PO ONE (02:54)
[2021-10-09 05:56] LABS: Basophils % 0.2 % (0.0-0.8); Eosinophils % 0.1 % (0.00-10.9); Hematocrit 26.3 VOL% (35.7-47.0); Hemoglobin 8.3 GM/DL (12.0-16.0); Immature Granulocytes % 0.6 %; Immature Granulocytes Absolute 0.11 #; Lymphocytes # 0.5 10*3/uL (1.4-4.0); Lymphocytes % 2.7 % (21.3-54.2); Mean Corpuscular HGB Conc 31.6 GM/DL (32-36); Mean Corpuscular Volume 106.9 FL (87-102); Mean Platelet Volume 10.5 FL (9.6-12.0); Monocytes % 3.3 % (1.7-12.7); Neutrophils % 93.1 % (38.7-73.9); Platelet Count 121 T/CUMM (130-400); Red Blood Count 2.46 MC/CUMM (3.8-5.5); Red Cell Distribution Width 14.4 % (9.3-17.3)
[2021-10-09 06:05] LABS: INR 3.4
[2021-10-09 06:42] LABS: Anisocytosis 2+; Band Neutrophils 6 % (0-10); Burr Cells 1+; Lymphocytes 6 % (20-55); Macrocytosis 1+; Ovalocytes Few; Platelet Estimate Adequate; Segmented Neutrophils 84 % (50-85); Total Cells Counted 100
[2021-10-09 07:48] LABS: Calcium 8.4 MG/DL (8.5-10.1); Osmolality,Calculated 285.3 MOS/KG (273-304); Potassium 3.6 MMOL/L (3.5-5.1)
[2021-10-09] MEDS: DEXTROSE 50% 25 GM/50 ML SYRINGE IV PRN ×3 (08:36→21:10)
[2021-10-09] MEDS ORDERED: FUROSEMIDE 40 MG/4 ML VIAL IV SCH (10:00)
[2021-10-09] MEDS: rOPINIRole 1 MG TABLET PO SCH ×3 (10:17→23:11)
[2021-10-09] MEDS: METOPROLOL TARTRATE 50 MG TABLET PO SCH ×2 (10:18→23:11)
[2021-10-09] MEDS: SERTRALINE 50 MG TABLET PO SCH (10:18)
[2021-10-09] MEDS: DOCUSATE SODIUM 100 MG CAPSULE PO SCH (10:20)
[2021-10-09] MEDS: PANTOPRAZOLE 40 MG TABLET PO SCH (10:20)
[2021-10-09] MEDS: VANCOMYCIN INJ 750 MG in SODIUM CHLORIDE 0.9% 250 ML IV SCH (13:16)
[2021-10-09] MEDS: OLANZapine 2.5 MG TABLET PO SCH (23:11)
[2021-10-10 05:11] LABS: Basophils % 0.1 % (0.0-0.8); Eosinophils % 0.1 % (0.00-10.9); Hematocrit 27.3 VOL% (35.7-47.0); Hemoglobin 8.4 GM/DL (12.0-16.0); Immature Granulocytes % 0.8 %; Immature Granulocytes Absolute 0.13 #; Lymphocytes # 0.5 10*3/uL (1.4-4.0); Mean Corpuscular HGB Conc 30.8 GM/DL (32-36); Mean Corpuscular Volume 105.8 FL (87-102); Mean Platelet Volume 10.9 FL (9.6-12.0); Monocytes % 5.4 % (1.7-12.7); Neutrophils % 90.6 % (38.7-73.9); Platelet Count 130 T/CUMM (130-400); Red Blood Count 2.58 MC/CUMM (3.8-5.5); Red Cell Distribution Width 14.3 % (9.3-17.3); White Blood Count 15.5 T/CUMM (4-12)
[2021-10-10 05:22] LABS: INR 3.2; PT Patient Result 33.3 SECS (10.5-12.0)
[2021-10-10 05:32] LABS: Hypochromia 1+; Lymphocytes 2 % (20-55); Microcytosis 1+; Ovalocytes Slight; Platelet Estimate Normal; Segmented Neutrophils 94 % (50-85); Total Cells Counted 100
[2021-10-10 05:39] LABS: Calcium 8.4 MG/DL (8.5-10.1); Potassium 3.4 MMOL/L (3.5-5.1)
[2021-10-10] MEDS ORDERED: MORPHINE 10 MG/5 ML UDCUP PO PRN (07:31)
[2021-10-10] MEDS ORDERED: LORazepam 2 MG/1 ML VIAL IV PRN (08:49)
[2021-10-10] MEDS: rOPINIRole 1 MG TABLET PO SCH ×3 (08:52→21:20)
[2021-10-10] MEDS: METOPROLOL TARTRATE 50 MG TABLET PO SCH (08:52)
[2021-10-10] MEDS: ASPIRIN EC 81 MG TABLET PO SCH (08:53)
[2021-10-10] MEDS ORDERED: LORazepam 1 MG TABLET PO SCH (09:00)
[2021-10-10] MEDS ORDERED: ZINC OXIDE PASTE 113 GM TUBE TOP PRN (15:21)
[2021-10-10] MEDS: WARFARIN 3 MG TABLET PO SCH (18:57)
[2021-10-10] MEDS: OLANZapine 2.5 MG TABLET PO SCH (21:20)
[2021-10-10] MEDS: METOPROLOL TARTRATE 25 MG TABLET PO SCH (21:20)
[2021-10-10] MEDS: MORPHINE 2 MG/1 ML SYRINGE IV PRN (21:25)
[2021-10-11 04:24] LABS: Basophils % 0.1 % (0.0-0.8); Eosinophils # 0.1 10*3/uL (0.0-0.87); Eosinophils % 0.4 % (0.00-10.9); Hematocrit 24.5 VOL% (35.7-47.0); Hemoglobin 7.6 GM/DL (12.0-16.0); Immature Granulocytes % 0.8 %; Immature Granulocytes Absolute 0.11 #; Lymphocytes # 0.6 10*3/uL (1.4-4.0); Mean Platelet Volume 10.5 FL (9.6-12.0); Monocytes % 5.7 % (1.7-12.7); Platelet Count 129 T/CUMM (130-400); Red Blood Count 2.29 MC/CUMM (3.8-5.5); Red Cell Distribution Width 14.5 % (9.3-17.3); White Blood Count 14.1 T/CUMM (4-12)
[2021-10-11 04:33] LABS: INR 2.8; PT Patient Result 29.3 SECS (10.5-12.0)
[2021-10-11 04:48] LABS: Hypersegmented Neutrophil SLIGHT; Hypochromia 1+; Lymphocytes 3 % (20-55); Segmented Neutrophils 92 % (50-85); Total Cells Counted 100
[2021-10-11 04:49] LABS: Anisocytosis 1+; Microcytosis 1+; Ovalocytes Slight; Platelet Estimate Adequate
[2021-10-11 04:53] LABS: Calcium 8.3 MG/DL (8.5-10.1); Osmolality,Calculated 300.1 MOS/KG (273-304); Potassium 3.2 MMOL/L (3.5-5.1)
[2021-10-11] MEDS: MORPHINE 2 MG/1 ML SYRINGE IV PRN ×2 (07:13→17:17)
[2021-10-11] MEDS: ASPIRIN EC 81 MG TABLET PO SCH (08:17)
[2021-10-11] MEDS: rOPINIRole 1 MG TABLET PO SCH ×3 (08:18→22:11)
[2021-10-11] MEDS: METOPROLOL TARTRATE 25 MG TABLET PO SCH ×2 (08:18→22:11)
[2021-10-11] MEDS: ENOXAPARIN 30 MG/0.3 ML SYRINGE SUBCUT SCH (10:12)
[2021-10-11] MEDS: METOPROLOL TARTRATE 5 MG/5 ML VIAL IV SCH ×3 (13:54→23:37)
[2021-10-11] MEDS: DIGOXIN 0.5 MG/2 ML AMP IV SCH (13:55)
[2021-10-11] MEDS: WARFARIN 3 MG TABLET PO SCH (17:19)
[2021-10-11] MEDS: OLANZapine 2.5 MG TABLET PO SCH (22:11)
[2021-10-12] MEDS: MORPHINE 2 MG/1 ML SYRINGE IV PRN ×3 (01:52→14:54)
[2021-10-12] MEDS: METOPROLOL TARTRATE 5 MG/5 ML VIAL IV SCH ×2 (05:51→13:42)
[2021-10-12 08:05] VITALS: BP 134/73
[2021-10-12] MEDS: ENOXAPARIN 30 MG/0.3 ML SYRINGE SUBCUT SCH (08:53)
[2021-10-12] MEDS: METOPROLOL TARTRATE 25 MG TABLET PO SCH (10:21)
[2021-10-12] MEDS: ASPIRIN EC 81 MG TABLET PO SCH (10:21)
[2021-10-12] MEDS: rOPINIRole 1 MG TABLET PO SCH (10:21)
[2021-10-12] MEDS: DIGOXIN 0.5 MG/2 ML AMP IV SCH (13:42)
== END 2021-10-12 16:15 | disposition home or self-care (01) | DRG 871 ==
LOC: EDBD 12:36 → N.3E 12:36 → N.ED 12:36 → EDUNIT# 12:36 → N.3E 18:12 → N.TELEN 10-08 10:53
PROVIDERS: ADMIT Family Medicine; ATTEND Family Medicine